=== PATIENT | female | born 1960 | race Caucasian/White ===

== ENCOUNTER 2022-11-15 08:37 | Outpatient (CLI) | payer BC | END 2022-11-15 08:38 | disposition home or self-care (01) | LOC: RAD 08:37 | PROVIDERS: ATTEND Internal Medicine Critical Care Medicine | DX: R06.00 Dyspnea, unspecified (principal) | CPT/HCPCS: 71046 ==

== ENCOUNTER 2023-10-03 13:35 | Outpatient (CLI) | payer MEDICARE, BC ==
[2023-10-03 15:24] LABS: #Basophils 0.06 10x3/uL (0.0-0.2); #Monocytes 0.73 10x3/uL (0.0-1.1); #Neutrophils 5.91 10x3/uL (1.5-8.4); %Basophils 0.6 % (0.0-2.0); %Lymphocytes 29.1 % (18.0-47.0); %Monocytes 7.5 % (0.0-10.0); %Neutrophils 60.5 % (40.0-75.0); Hematocrit 43.1 % (34.9-44.5); Hemoglobin 14.6 g/dL (12.0-15.5); Mean Corpuscular HGB CONC 33.9 g/dL (32.0-36.0); Mean Corpuscular Hemoglobin 31.2 pg (27.0-33.0); Mean Corpuscular Volume 92.1 fL (81.6-98.3); Mean Platelet Volume 11.9 fL (7.4-10.4); Platelet Count 207 10x3/uL (150-450); RBC Distribution Width 13.1 % (11.5-14.5); Red Blood Cell (RBC) Count 4.68 10x6/uL (3.90-5.03); White Blood Cell (WBC) Count 9.8 10x3/uL (3.5-10.5)
[2023-10-03 15:32] LABS: ALT (SGPT) 19 U/L (8-55); AST (SGOT) 14 U/L (5-34); Alkaline Phosphatase 86 U/L (40-110); Anion Gap 15 mmol/L (10-20); BUN (Urea Nitrogen) 22 mg/dL (9.8-20.1); Bilirubin, Total 0.4 mg/dL (0.2-1.2); Calc. Creatinine Clearance 0 mL/min (70-130); Calcium 9.5 mg/dL (7.8-10.44); Carbon Dioxide 27 mmol/L (23-31); Chloride 104 mmol/L (98-107); Estimated GFR 84; Globulin 3.3 g/dL (2.4-3.5); Glucose 80 mg/dL (80-115); Potassium 3.9 mmol/L (3.5-5.1); Protein, Total 7.3 g/dL (5.8-8.1); Sodium 142 mmol/L (136-145)
== END 2023-10-03 13:36 | disposition home or self-care (01) ==
LOC: LABBT 13:35
PROVIDERS: ATTEND Surgery
DX: Z01.818 Encounter for other preprocedural examination (principal); N63.20 Unspecified lump in the left breast, unspecified quadrant
CPT/HCPCS: 80053; 85025; 93005; 93010

== ENCOUNTER 2023-10-07 06:06 | Day surgery (SDC) | payer MEDICARE, BC ==
[2023-10-03 14:07] VITALS: BMI 31.8
[2023-10-07] MEDS ORDERED: Lidocaine 1% PF 5 ML VIAL ONE (07:21)
[2023-10-07] MEDS ORDERED: Sodium Bicarbonate 2.5 MEQ/5 ML SDV ONE (07:21)
[2023-10-07] MEDS ORDERED: Sodium Chloride 0.9% 100 ML ONE (09:28)
[2023-10-07] MEDS ORDERED: CEFAZOLIN 2 GM VIAL ONE (09:28)
[2023-10-07] MEDS ORDERED: EPINEPHrine 1 MG/ML VIAL ONE (09:40)
[2023-10-07] MEDS ORDERED: Bupivacaine 0.25% HCL 30 ML VIAL ONE (09:40)
[2023-10-07] MEDS ORDERED: Lidocaine 2% PF 5 ML VIAL ONE ×2 (09:40→09:41)
[2023-10-07] MEDS ORDERED: PROPOFOL 20 ML ONE (09:41)
[2023-10-07] MEDS ORDERED: fentaNYL PF 100 MCG/2 ML SYRINGE ONE (09:41)
[2023-10-07] MEDS ORDERED: Midazolam HCl 2 mg/2 ml Vial ONE (09:41)
[2023-10-07] MEDS ORDERED: Ondansetron PF 4 MG/2 ML Vial ONE (10:02)
[2023-10-07] MEDS ORDERED: Dexamethasone 4 mg/ml Vial ONE (10:02)
[2023-10-07] MEDS ORDERED: PHENYLEPHRINE-NS 100 MCG/ML 10 ML SYRINGE ONE (10:38)
== END 2023-10-07 13:43 | disposition home or self-care (01) ==
LOC: SDC 06:06
PROVIDERS: ATTEND Surgery
PROC: 0HBU0ZZ Excision of Left Breast, Open Approach (ICD-10-PCS; principal; 2023-10-07)
DX: D24.2 Benign neoplasm of left breast (principal); N60.22 Fibroadenosis of left breast; N60.42 Mammary duct ectasia of left breast; I10 Essential (primary) hypertension; E78.5 Hyperlipidemia, unspecified; F17.210 Nicotine dependence, cigarettes, uncomplicated; Z90.710 Acquired absence of both cervix and uterus; Z90.49 Acquired absence of other specified parts of digestive tract; Z79.899 Other long term (current) drug therapy
CPT/HCPCS: 19281; 19301; 76098; J0171; J0665; J1100; J2001; J2250; J2405; J2704; J3490; 88307; 88341; 88342; A4648